=== PATIENT | female | born 1985 | race African-American/Black ===

== ENCOUNTER 2018-02-05 16:51 | Emergency (ER) | payer OTHER ==
[~2018-02-05] VITALS: Ht 165.1 cm; Wt 118.9 kg
[2018-02-05] MEDS ORDERED: ULTRAM50 MG PO (18:08)
[2018-02-05] MEDS ORDERED: PEN-VEE K,VEET500 MG PO (18:08)
[2018-02-05] MEDS ORDERED: MOTRIN800 MG PO (18:08)
[2018-02-05 18:34] VITALS: BP 124/86
== END 2018-02-05 18:36 | disposition home or self-care (01) ==
LOC: EME 16:51
DX: K08.89 Other specified disorders of teeth and supporting structures (principal); R68.84 Jaw pain; K02.9 Dental caries, unspecified
CPT/HCPCS: 99281; 99283